=== PATIENT | female | born 2000 | race Caucasian/White ===

== ENCOUNTER 2018-07-17 11:19 | Emergency (ER) | payer OTHER ==
[~2018-07-17] VITALS: Ht 172.7 cm; Wt 85.7 kg
[2018-07-17 11:25] VITALS: BP 104/63
--- NOTE | 2018-07-17 11:30 | NUR ---
to chair for nxt bed
--- NOTE | 2018-07-17 11:46 | NUR ---
PT AMBULATES TO BED 6
--- NOTE | 2018-07-17 11:50 | NUR ---
18Y/F BIB SELF WITH C/O VOMITING DARK RED BLOOD WITH CLOTS WARLIER TODAY. PT ALSO STATES SHE HAS EPIGASTRIC PAIN WITH NAUSEA, - DIARRHEA. LBM: 07/17/18, PT IS AAOX4, VSS AT THIS TIME, BED DOWN, BEDRAIL UP X 1, ER MD AWARE AND NOTIFIED OF PT STATUS. PMH: NONE RX: NONE
[2018-07-17] MEDS ORDERED: NACL 0.9% 500 ML IV ONE (12:29)
[2018-07-17] MEDS ORDERED: PANTOPRAZOLE 40 MG INJ VIAL IVP ONE (12:30)
[2018-07-17] MEDS ORDERED: ONDANSETRON 4 MG/2 ML VIAL IVP ONE (12:30)
[2018-07-17] MEDS ORDERED: KETOROLAC 30 MG/ML VIAL IVP ONE (12:30)
[2018-07-17 12:58] LABS: BASOPHILS % (AUTO) 0.3 % (0.0-2.0); EOSINOPHILS # (AUTO) 0.1 K/uL (0-0.4); EOSINOPHILS % (AUTO) 0.8 % (0.0-4.0); HEMATOCRIT 38.4 % (36-48); HEMOGLOBIN 12.1 g/dL (12.0-16.0); LYMPHOCYTES # (AUTO) 1.1 K/uL (2.5-16.5); LYMPHOCYTES % (AUTO) 15.1 % (20.5-51.1); MEAN CORPUSCULAR HEMOGLOBIN 25 pg (27-31); MEAN CORPUSCULAR HGB CONC 32 g/dL (33-37); MEAN CORPUSCULAR VOLUME 80.2 fL (80-94); MONOCYTES # (AUTO) 0.3 K/uL (0.8-1.0); MONOCYTES % (AUTO) 4.6 % (1.7-9.3); NEUTROPHILS # (AUTO) 5.9 K/uL (1.8-7.7); NEUTROPHILS % (AUTO) 79.2 % (42.2-75.2); PLATELET COUNT (AUTO) 311 K/uL (140-450); RED BLOOD CELL COUNT(AUTO) 4.79 MIL/uL (4.20-5.40); RED CELL DISTRIBUTION WIDTH 14.3 % (11.6-13.7); WHITE BLOOD COUNT (AUTO) 7.5 K/uL (4.5-11.0)
[2018-07-17 13:25] LABS: ANION GAP 11.1 (8-16); CARBON DIOXIDE 28.9 mmol/L (21-32); CREATININE 0.7 mg/dL (0.6-1.3)
[2018-07-17 13:31] LABS: ALBUMIN 3.7 g/dL (3.4-5.0); TOTAL BILIRUBIN 0.4 mg/dL (0.0-1.0)
--- NOTE | 2018-07-17 14:00 | NUR ---
PATIENT STATED SHE FEELS MUCH BETTER.DENIES NAUSEA. DENIES ABD. CRAMPING
--- NOTE | 2018-07-17 14:20 | NUR ---
Patient discharged with v/s stable. Written and verbal after care instructions given and explained. Patient alert, oriented and verbalized understanding of instructions. Ambulatory with steady gait. All questions addressed prior to discharge. ID band removed. Patient advised to follow up with PMD. Rx of PROTONIX,ZOFRAN given. Patient educated on indication of medication including possible reaction and side effects. Opportunity to ask questions provided and answered.
[2018-07-17 14:21] VITALS: BP 102/55
== END 2018-07-17 14:20 | disposition home or self-care (01) ==
LOC: MED 11:19
DX: K22.6 Gastro-esophageal laceration-hemorrhage syndrome (principal); K29.70 Gastritis, unspecified, without bleeding
CPT/HCPCS: 36415; 80053; 83690; 85025; 96365; 96375; 99283; C9113; J1885; J2405; J7030

== ENCOUNTER 2019-01-14 17:47 | Emergency (ER) | payer OTHER ==
[~2019-01-14] VITALS: Ht 172.7 cm; Wt 88.1 kg
[2019-01-14 17:59] VITALS: BP 117/75
[2019-01-14 19:16] LABS: BASOPHILS % (AUTO) 0.3 % (0.0-2.0); EOSINOPHILS # (AUTO) 0.1 K/uL (0-0.4); EOSINOPHILS % (AUTO) 1.7 % (0.0-4.0); HEMATOCRIT 36.9 % (36-48); HEMOGLOBIN 12.1 g/dL (12.0-16.0); LYMPHOCYTES # (AUTO) 1.7 K/uL (2.5-16.5); LYMPHOCYTES % (AUTO) 19.7 % (20.5-51.1); MEAN CORPUSCULAR HEMOGLOBIN 27 pg (27-31); MEAN CORPUSCULAR HGB CONC 33 g/dL (33-37); MEAN CORPUSCULAR VOLUME 82.5 fL (80-94); MONOCYTES # (AUTO) 0.5 K/uL (0.8-1.0); MONOCYTES % (AUTO) 5.3 % (1.7-9.3); NEUTROPHILS # (AUTO) 6.3 K/uL (1.8-7.7); PLATELET COUNT (AUTO) 246 K/uL (140-450); RED BLOOD CELL COUNT(AUTO) 4.48 MIL/uL (4.20-5.40); RED CELL DISTRIBUTION WIDTH 15.4 % (11.6-13.7); WHITE BLOOD COUNT (AUTO) 8.6 K/uL (4.5-11.0)
[2019-01-14 19:45] LABS: APPEARANCE,URINE HAZY (CLEAR); BILIRUBIN,URINE NEGATIVE (NEGATIVE); BLOOD, URINE 3+ (NEGATIVE); COLOR,URINE YELLOW (YELLOW); LEUKOCYTE ESTERASE ,URINE 3+ (NEGATIVE); NITRITE, URINE NEGATIVE (NEGATIVE); UGLUCOSE NEGATIVE (NEGATIVE)
[2019-01-14 19:56] LABS: RBC,URINE 20-50 /HPF (0-5); WBC,URINE 16-25 (MOD) /HPF (0-5)
[2019-01-14 20:56] VITALS: BP 98/51
== END 2019-01-14 20:55 | disposition home or self-care (01) ==
LOC: MED 17:47
DX: O23.41 Unspecified infection of urinary tract in pregnancy, first trimester (principal); Z3A.08 8 weeks gestation of pregnancy
CPT/HCPCS: 36415; 76817; 81001; 81025; 84702; 85025; 86900; 86901; 87086; 99284; Q0092

== ENCOUNTER 2019-01-21 09:45 | Emergency (ER) | payer OTHER ==
[~2019-01-21] VITALS: Ht 175.3 cm; Wt 88.9 kg
[2019-01-21 09:56] VITALS: BP 120/74
--- NOTE | 2019-01-21 09:59 | NUR ---
PT TO WAIT IN ER LOBBY UNTIL AFTER CODE. AA0X4. VSS. NOT ACTIVELY VOMITING AT THIS TIME.
--- NOTE | 2019-01-21 10:18 | NUR ---
PT AMB TO BED 11 WITH STEADY GAIT
--- NOTE | 2019-01-21 10:20 | NUR ---
PT BIB SELF C/O ABDOMINAL PAIN WITH N/V/D X 3 DAYS. PT REPORTS CONSTANT NON-RADIATING BURNING EPIGASTRIC PAIN AT 10/10. ABD IS SOFT, TENDER TO TOUCH IN EPIGASTRIC REGION WITH BOWEL SOUNDS ACTIVE X4 QUADRANTS. PT REPORTS 4 EPISODES OF BROWN WATERY DIARRHEA AND 3 EPISODES OF YELLOW EMESIS IN PAST 24 HOURS. PATIENT STATES SHE HAD AN 3 DAYS AGO, [facility] PMH- DENIES
[2019-01-21] MEDS ORDERED: NACL 0.9% 1,000 ML IV ONE (10:50)
[2019-01-21] MEDS ORDERED: ONDANSETRON 4 MG/2 ML VIAL IVP ONE (10:50)
[2019-01-21 11:10] LABS: BASOPHILS % (AUTO) 0.4 % (0.0-2.0); EOSINOPHILS # (AUTO) 0.1 K/uL (0-0.4); EOSINOPHILS % (AUTO) 1.7 % (0.0-4.0); HEMATOCRIT 35.4 % (36-48); HEMOGLOBIN 11.6 g/dL (12.0-16.0); LYMPHOCYTES # (AUTO) 1.3 K/uL (2.5-16.5); LYMPHOCYTES % (AUTO) 18.5 % (20.5-51.1); MEAN CORPUSCULAR HEMOGLOBIN 27 pg (27-31); MEAN CORPUSCULAR HGB CONC 33 g/dL (33-37); MEAN CORPUSCULAR VOLUME 83.1 fL (80-94); MONOCYTES # (AUTO) 0.4 K/uL (0.8-1.0); MONOCYTES % (AUTO) 5.2 % (1.7-9.3); NEUTROPHILS # (AUTO) 5.3 K/uL (1.8-7.7); NEUTROPHILS % (AUTO) 74.2 % (42.2-75.2); PLATELET COUNT (AUTO) 252 K/uL (140-450); RED BLOOD CELL COUNT(AUTO) 4.27 MIL/uL (4.20-5.40); RED CELL DISTRIBUTION WIDTH 15.2 % (11.6-13.7); WHITE BLOOD COUNT (AUTO) 7.1 K/uL (4.5-11.0)
[2019-01-21 11:15] LABS: ANION GAP 9.4 (8-16); CARBON DIOXIDE 28.4 mmol/L (21-32); CREATININE 0.7 mg/dL (0.6-1.3); POTASSIUM 3.8 mmol/L (3.5-5.1)
[2019-01-21 11:15] LABS: APPEARANCE,URINE CLOUDY (CLEAR); BILIRUBIN,URINE NEGATIVE (NEGATIVE); BLOOD, URINE 3+ (NEGATIVE); COLOR,URINE RED (YELLOW); LEUKOCYTE ESTERASE ,URINE 1+ (NEGATIVE); NITRITE, URINE NEGATIVE (NEGATIVE); UGLUCOSE NEGATIVE (NEGATIVE)
[2019-01-21] MEDS ORDERED: ALUMINUM HYD/MAG/SIMETHICONE 30 ML UDC PO ONE (11:15)
[2019-01-21] MEDS ORDERED: KETOROLAC 15 MG/ML VIAL IVP ONE (11:15)
[2019-01-21 11:19] LABS: RBC,URINE TOO NUMEROUS TO COUN /HPF (0-5)
[2019-01-21 11:35] LABS: ALBUMIN 3.7 g/dL (3.4-5.0); TOTAL BILIRUBIN 0.3 mg/dL (0.0-1.0)
--- NOTE | 2019-01-21 11:51 | NUR ---
US AT BEDSIDE AT THIS TIME
--- NOTE | 2019-01-21 13:41 | NUR ---
PT RESTING IN BED WITH EYES OPEN. PT DENIES NAUSEA AT THIS TIME AND REPORTS THAT SHE HAS NO EPIGASTRIC PAIN AT THIS TIME, BUT DOES REPORT 8/10 PRESSURE HEADACHE IN FRONTAL REGION. VSS.
--- NOTE | 2019-01-21 15:10 | NUR ---
PT IN BED, CALM, DENIES EPIGASTRIC PAIN. STATES HEADACHE IS A 5/10. VSS.
[2019-01-21 15:55] VITALS: BP 102/64
== END 2019-01-21 15:55 | disposition home or self-care (01) ==
LOC: MED 09:45
DX: N39.0 Urinary tract infection, site not specified (principal); R10.9 Unspecified abdominal pain; Z79.899 Other long term (current) drug therapy
CPT/HCPCS: 36415; 76705; 76856; 80053; 81001; 81025; 82150; 83690; 84702; 84703; 85025; 87086; 96361; 96374; 96375; 99284; J1885; J2405; J7030; Q0092

== ENCOUNTER 2019-08-21 19:07 | Emergency (ER) | payer OTHER ==
[~2019-08-21] VITALS: Ht 172.7 cm; Wt 81.6 kg
[2019-08-21 19:16] VITALS: BP 127/69
--- NOTE | 2019-08-21 19:18 | NUR ---
PT AMBULATED WITH STEADY GAIT TO BED 9
--- NOTE | 2019-08-21 19:20 | NUR ---
19 Y/O FEMALE C/O SOB/SORE THROAT/ACHING CHEST PAIN WHEN TAKES BREATHS. PT DENIES ANY TRAUMA . DENIES N/V/D; SKIN IS PINK/WARM/DRY; AAOX4 WITH EVEN AND STEADY GAIT; PT DENIES ANY FEVER, SOB, OR COUGH AT THIS TIME; PATIENT STATES PAIN OF 5/10 AT THIS TIME; VSS; PATIENT POSITIONED FOR COMFORT; HOB ELEVATED; BEDRAILS UP X1 AND WHEELS LOCKED; BED DOWN. MEDICAL HX: PT DENIES NKA
--- NOTE | 2019-08-21 19:50 | NUR ---
DR. ANGELES BEDSIDE EVALUATING PT
--- NOTE | 2019-08-21 19:51 | NUR ---
AT BEDSIDE EXAMINING PT
[2019-08-21 20:36] VITALS: BP 107/79
--- NOTE | 2019-08-21 20:36 | NUR ---
Patient discharged with v/s stable. Written and verbal after care instructions given and explained. Patient verbalized understanding. Ambulatory with steady gait. All questions addressed prior to discharge. Advised to follow up with PMD.
== END 2019-08-21 20:36 | disposition home or self-care (01) ==
LOC: MED 19:07
DX: J02.8 Acute pharyngitis due to other specified organisms (principal); B97.89 Other viral agents as the cause of diseases classified elsewhere
CPT/HCPCS: 71045; 99283; Q0092

== ENCOUNTER 2020-05-22 19:19 | Emergency (ER) | payer MEDICAID, OTHER ==
[~2020-05-22] VITALS: Ht 172.7 cm; Wt 86.2 kg
[2020-05-22 19:30] VITALS: BP 138/78
--- NOTE | 2020-05-22 19:31 | NUR ---
TO TENT AMBULATORY
[2020-05-22] MEDS ORDERED: ACETAMINOPHEN EXTRA STRENGTH 500 MG TAB PO ONE (20:25)
== END 2020-05-22 22:00 | disposition home or self-care (01) ==
LOC: MED 19:19
DX: R07.89 Other chest pain (principal); M54.6 Pain in thoracic spine
CPT/HCPCS: 71045; 93005; 99283

== ENCOUNTER 2020-12-12 23:13 | Emergency (ER) | payer MEDICAID ==
[~2020-12-12] VITALS: Ht 172.7 cm; Wt 91.2 kg
[2020-12-12 23:23] VITALS: BP 119/69
--- NOTE | 2020-12-12 23:29 | NUR ---
PATIENT AMBUALTED TO LOOBY WITH STEADY GAIT. PATIENT STATES UNABLE TO GIVE URINE SAMPLE AT THIS TIME AND UA CUP GIVEN.
[2020-12-13 00:16] LABS: RED BLOOD CELL COUNT(AUTO) 4.51 MIL/uL (4.20-5.40); WHITE BLOOD COUNT (AUTO) 8.5 K/uL (4.8-10.8)
[2020-12-13 00:17] LABS: HEMATOCRIT 36.4 % (36-48); HEMOGLOBIN 11.6 g/dL (12.0-16.0); LYMPHOCYTES % (AUTO) 19.2 % (20.5-51.1); MEAN CORPUSCULAR HEMOGLOBIN 26 pg (27-31); MEAN CORPUSCULAR HGB CONC 32 g/dL (33-37); MEAN CORPUSCULAR VOLUME 80.8 fL (80-94); MONOCYTES % (AUTO) 5.6 % (1.7-9.3); NEUTROPHILS % (AUTO) 70.5 % (42.2-75.2); PLATELET COUNT (AUTO) 289 K/uL (140-450); RED CELL DISTRIBUTION WIDTH 19.2 % (11.6-13.7)
[2020-12-13 00:18] LABS: BASOPHILS # (AUTO) 0.2 K/uL (0.00-0.22); BASOPHILS % (AUTO) 2.2 % (0.0-2.0); EOSINOPHILS # (AUTO) 0.2 K/uL (0-0.4); EOSINOPHILS % (AUTO) 2.5 % (0.0-4.0); LYMPHOCYTES # (AUTO) 1.6 K/uL (2.5-16.5); MONOCYTES # (AUTO) 0.5 K/uL (0.8-1.0)
--- NOTE | 2020-12-13 00:21 | NUR ---
pt taken to ultrasound.
[2020-12-13 00:22] LABS: APPEARANCE,URINE HAZY (CLEAR); BILIRUBIN,URINE NEGATIVE (NEGATIVE); BLOOD, URINE TRACE-L (NEGATIVE); COLOR,URINE YELLOW (YELLOW); LEUKOCYTE ESTERASE ,URINE 1+ (NEGATIVE); NITRITE, URINE POSITIVE (NEGATIVE); PH,URINE 6.5 (5.0-9.0); UGLUCOSE NEGATIVE (NEGATIVE)
--- NOTE | 2020-12-13 00:33 | NUR ---
pt taken to bed #5
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
[2020-12-13 00:43] LABS: RBC,URINE 0-5 /HPF (0-5)
--- NOTE | 2020-12-13 02:11 | NUR ---
Dr. Carmona examining patient.
--- NOTE | 2020-12-13 02:16 | NUR ---
Female Imaging Center Manager accompanied female patient for Pelvic Exam. Wet Mount and Culture collected and handed to microbiology lab assistant.
--- NOTE | 2020-12-13 02:54 | NUR ---
UA COLLECTED AND GIVEN TO ADVERTISING AGENT.
[2020-12-13] MEDS ORDERED: cefTRIAXone 500 MG in LIDOCAINE MPF 1% 1 ML IM ONE (03:30)
[2020-12-13] MEDS ORDERED: DOXY-565 PO (03:31)
[2020-12-13] MEDS ORDERED: METR500T1 PO (03:32)
[2020-12-13] MEDS ORDERED: NITR100C7 PO (03:33)
[2020-12-13] MEDS ORDERED: cefTRIAXone 500 MG VIAL ONE (03:57)
[2020-12-13] MEDS ORDERED: LIDOCAINE MPF 1% 5 ML ONE (03:57)
[2020-12-13 04:04] VITALS: BP 119/69
--- NOTE | 2020-12-13 04:04 | NUR ---
Patient discharged with v/s stable. Written and verbal after care instructions given and explained. Patient alert, oriented and verbalized understanding of instructions. Ambulatory with steady gait. All questions addressed prior to discharge. ID band removed. Patient advised to follow up with PMD. Rx of DOXYCYCLINE, FLAGYL, MACROBID given. Patient educated on indication of medication including possible reaction and side effects. Opportunity to ask questions provided and answered.
== END 2020-12-13 04:04 | disposition home or self-care (01) ==
LOC: MED 23:13
DX: O23.591 Infection of other part of genital tract in pregnancy, first trimester (principal); B96.89 Other specified bacterial agents as the cause of diseases classified elsewhere; O46.8X1 Other antepartum hemorrhage, first trimester
CPT/HCPCS: 36415; 76801; 81001; 81025; 84702; 85025; 86900; 86901; 87086; 87210; 87491; 96372; 99284; J0696; J2001

== ENCOUNTER 2022-01-15 23:15 | Emergency (ER) | payer MEDICAID ==
[~2022-01-15] VITALS: Ht 175.3 cm; Wt 94.8 kg
[~2022-01-15 23:15] MED LIST: DOXY-565 PO; METR500T1 PO; NITR100C7 PO
[2022-01-15 23:39] VITALS: BP 120/70
--- NOTE | 2022-01-15 23:44 | NUR ---
PT AMBULATED TO BED 5 WITH RN
--- NOTE | 2022-01-15 23:48 | NUR ---
21 YO F BIBS W C/O EPIGASTRIC PAIN THAT WORSENS AFTER EATING X THIS MORNING, PT STATES SHE FEEL A BURNING SENSATION. DENIES N/V/D, CONSTIPATION. PMH: DENIES NKDA
--- NOTE | 2022-01-16 01:00 | NUR ---
Patient appears to be resting comfortably in bed. Vital Signs within normal limits. Respirations even and unlabored.
--- NOTE | 2022-01-16 01:26 | NUR ---
PATIENT LEFT WITHOUT BEING SEEN BY DR. CASTLE. NO FURTHER CARE PROVIDED FOR PATIENT.
== END 2022-01-16 01:26 | disposition left against medical advice (07) ==
LOC: MED 23:15
DX: R10.13 Epigastric pain (principal); Z53.21 Procedure and treatment not carried out due to patient leaving prior to being seen by health care provider

== ENCOUNTER 2022-11-14 18:34 | Emergency (ER) | payer MEDICAID ==
[~2022-11-14] VITALS: Ht 172.7 cm; Wt 93.4 kg
[~2022-11-14 18:34] MED LIST changes: -DOXY-565 PO; +DOXY-745 PO
[2022-11-14 18:41] VITALS: BP 111/59
[2022-11-14] MEDS ORDERED: diphenhydrAMINE 50 MG/ML VIAL IVP ONE (19:10)
[2022-11-14] MEDS ORDERED: NACL 0.9% 1,000 ML IV ONE (19:10)
[2022-11-14] MEDS ORDERED: PROCHLORPERAZINE 10 MG/2 ML VIAL IVP ONE (19:10)
[2022-11-14] MEDS ORDERED: KETOROLAC 15 MG/ML VIAL IVP ONE (19:10)
[2022-11-14 19:20] VITALS: BP 145/89
[2022-11-14] MEDS ORDERED: ONDANSETRON 4 MG/2 ML VIAL IVP ONE (20:30)
[2022-11-14] MEDS ORDERED: FAMO-90 PO (20:48)
[2022-11-14] MEDS ORDERED: ONDA-188 SL (20:48)
[2022-11-14] MEDS ORDERED: IBUP-2213 PO (20:48)
[2022-11-14 20:59] VITALS: BP 120/93
--- NOTE | 2022-11-14 21:03 | NUR ---
22YR OLD FEMALE BIB SELF C/O ABD PAIN N/V X2DAYS. PT STATES ABD PAIN 10/10 UPPER GASTRIC. PT IS A&OX4. DENIES SOB OR CP. 20G IV PLACED IN L AC. NKDA NO MED HX
== END 2022-11-14 21:19 | disposition home or self-care (01) ==
LOC: MED 18:34
DX: R51.9 Headache, unspecified (principal); R11.2 Nausea with vomiting, unspecified; Z79.899 Other long term (current) drug therapy
CPT/HCPCS: 81025; 96361; 96374; 96375; 99284; J0780; J1200; J1885; J2405; J7030

== ENCOUNTER 2022-12-26 17:43 | Emergency (ER) | payer MEDICAID ==
[~2022-12-26] VITALS: Ht 172.7 cm; Wt 90.7 kg
[~2022-12-26 17:43] MED LIST changes: +FAMO-90 PO; +IBUP-2213 PO; +ONDA-188 SL
[2022-12-26 18:06] VITALS: BP 125/71; PULSE 101; RESP 20; TEMP 98.6; O2SAT 100
--- NOTE | 2022-12-26 18:15 | NUR ---
TO ER BED 6
[2022-12-26 18:25] VITALS: O2SAT 99
--- NOTE | 2022-12-26 18:28 | NUR ---
Introduced self to patient, patient is awake and alert and able to ambulate. Patient shared she has abd pain since last night, has a sick child at home and the pain is increasing 10/10. PT test and UA dip collected, analyzed and sent to lab. Patient is resting comfortably in bed.
[2022-12-26] MEDS ORDERED: NACL 0.9% 1,000 ML IV ONE (18:40)
[2022-12-26] MEDS ORDERED: KETOROLAC 30 MG/ML VIAL IVP ONE (18:40)
--- NOTE | 2022-12-26 18:58 | NUR ---
RN is in the room, gave pain medication via IV, started bolus IV fluids, and patient is resting in bed.
[2022-12-26 19:00] LABS: BASOPHILS % (AUTO) 0.2 % (0.0-2.0); HEMATOCRIT 37.9 % (36-48); HEMOGLOBIN 12.6 g/dL (12.0-16.0); LYMPHOCYTES # (AUTO) 0.9 K/uL (2.5-16.5); LYMPHOCYTES % (AUTO) 5.9 % (20.5-51.1); MEAN CORPUSCULAR HEMOGLOBIN 28 pg (27-31); MEAN CORPUSCULAR HGB CONC 33 g/dL (33-37); MEAN CORPUSCULAR VOLUME 84.4 fL (80-94); MONOCYTES # (AUTO) 0.8 K/uL (0.8-1.0); MONOCYTES % (AUTO) 5.5 % (1.7-9.3); NEUTROPHILS % (AUTO) 88.4 % (42.2-75.2); PLATELET COUNT (AUTO) 229 K/uL (140-450); RED BLOOD CELL COUNT(AUTO) 4.49 MIL/uL (4.20-5.40); RED CELL DISTRIBUTION WIDTH 13.8 % (11.6-13.7); WHITE BLOOD COUNT (AUTO) 14.7 K/uL (4.8-10.8)
[2022-12-26 19:14] LABS: APPEARANCE,URINE SL CLOUDY (CLEAR); BILIRUBIN,URINE NEGATIVE (NEGATIVE); BLOOD, URINE TRACE-I (NEGATIVE); COLOR,URINE YELLOW (YELLOW); LEUKOCYTE ESTERASE ,URINE NEGATIVE (NEGATIVE); NITRITE, URINE POSITIVE (NEGATIVE); PH,URINE 6.5 (5.0-9.0); UGLUCOSE NEGATIVE (NEGATIVE)
--- NOTE | 2022-12-26 19:19 | NUR ---
Rounding on patient. Gave report to incoming nurse. Patient is awake, alert and able to ambulate. Patient pain assessment due 1954.
--- NOTE | 2022-12-26 19:21 | NUR ---
RECEIVED REPORT FROM DAY SHIFT NURSE JM MARIN. PT LYING IN BED AWAKE AND ORIENTED X4. PT STATES PAIN 10/10 TO ABDOMEN AND GENERALIZED PAIN. CALL LIGHT WITHIN REACH.
[2022-12-26 19:29] LABS: ALBUMIN 3.8 g/dL (3.4-5.0); ANION GAP 16.3 (8-16); CARBON DIOXIDE 22.7 mmol/L (21-32); CREATININE 0.8 mg/dL (0.6-1.3); TOTAL BILIRUBIN 0.7 mg/dL (0.0-1.0)
[2022-12-26] MEDS ORDERED: cefTRIAXone 1,000 MG VIAL ONE (19:29)
[2022-12-26 19:33] VITALS: O2SAT 99
--- NOTE | 2022-12-26 19:55 | NUR ---
Per Sky Babin LVN, NaCl 0.9 1L bolus started at 1854 and stopped at 1954. ED director aware.
[2022-12-26] MEDS ORDERED: NITR100C7 PO (21:19)
[2022-12-26 21:25] VITALS: BP 100/47; PULSE 81; RESP 25; O2SAT 97
== END 2022-12-26 21:27 | disposition home or self-care (01) ==
LOC: MED 17:43
DX: N39.0 Urinary tract infection, site not specified (principal); Z79.899 Other long term (current) drug therapy
CPT/HCPCS: 36415; 80053; 81001; 81025; 83605; 85025; 87040; 87086; 96361; 96365; 96375; 99285; J0696; J1885; J7030

== ENCOUNTER 2023-05-18 19:57 | Emergency (ER) | payer MEDICAID ==
[~2023-05-18] VITALS: Ht 172.7 cm; Wt 88.5 kg
[2023-05-18 20:40] VITALS: BP 135/65; PULSE 74; RESP 16; TEMP 98.1
[2023-05-18] MEDS ORDERED: NACL 0.9% 1,000 ML IV ONE (22:30)
[2023-05-18] MEDS ORDERED: ACETAMINOPHEN 100 ML IV ONE (22:30)
[2023-05-18] MEDS ORDERED: METOCLOPRAMIDE 10 MG/2 ML INJ VIAL IVP ONE (22:30)
[2023-05-18 23:04] LABS: APPEARANCE,URINE CLEAR (CLEAR); BASOPHILS # (AUTO) 0.1 K/uL (0.00-0.22); BASOPHILS % (AUTO) 0.6 % (0.0-2.0); BILIRUBIN,URINE NEGATIVE (NEGATIVE); BLOOD, URINE TRACE-I (NEGATIVE); COLOR,URINE YELLOW (YELLOW); EOSINOPHILS # (AUTO) 0.2 K/uL (0-0.4); EOSINOPHILS % (AUTO) 2.1 % (0.0-4.0); HEMATOCRIT 36.7 % (36-48); HEMOGLOBIN 12.4 g/dL (12.0-16.0); LEUKOCYTE ESTERASE ,URINE 1+ (NEGATIVE); LYMPHOCYTES # (AUTO) 2.1 K/uL (2.5-16.5); LYMPHOCYTES % (AUTO) 24.5 % (20.5-51.1); MEAN CORPUSCULAR HEMOGLOBIN 29 pg (27-31); MEAN CORPUSCULAR HGB CONC 34 g/dL (33-37); MEAN CORPUSCULAR VOLUME 84.7 fL (80-94); MONOCYTES # (AUTO) 0.6 K/uL (0.8-1.0); MONOCYTES % (AUTO) 7.3 % (1.7-9.3); NEUTROPHILS # (AUTO) 5.5 K/uL (1.8-7.7); NEUTROPHILS % (AUTO) 65.5 % (42.2-75.2); NITRITE, URINE POSITIVE (NEGATIVE); PLATELET COUNT (AUTO) 272 K/uL (140-450); PROTEIN,URINE TRACE (NEGATIVE); RED BLOOD CELL COUNT(AUTO) 4.34 MIL/uL (4.20-5.40); RED CELL DISTRIBUTION WIDTH 14.7 % (11.6-13.7); UGLUCOSE NEGATIVE (NEGATIVE); WHITE BLOOD COUNT (AUTO) 8.4 K/uL (4.8-10.8)
[2023-05-18 23:13] LABS: BACTERIA,URINE >30 (MANY) /HPF (None Seen); MUCUS,URINE 2+ /LPF (None Seen); RBC,URINE 0-5 /HPF (0-5); SQUAMOUS EPITHELIAL CELL,UR 0-3 (FEW) /LPF (0-3 (FEW)); WBC,URINE TOO MANY TO COUNT /HPF (0-5)
[2023-05-18 23:30] VITALS: BP 110/59; PULSE 65; RESP 18; O2SAT 99
[2023-05-18 23:39] LABS: ANION GAP 11.1 (8-16); CALCIUM 8.5 mg/dL (8.5-10.1); CARBON DIOXIDE 29.3 mmol/L (21-32); CREATININE 0.7 mg/dL (0.6-1.3); POTASSIUM 3.4 mmol/L (3.5-5.1)
[2023-05-18 23:45] LABS: ALBUMIN 3.1 g/dL (3.4-5.0); BILIRUBIN,DIRECT 0.1 mg/dL (0.0-0.3); TOTAL BILIRUBIN 0.3 mg/dL (0.0-1.0); TOTAL PROTEIN, SERUM 7.1 g/dL (6.4-8.2)
[2023-05-19] MEDS ORDERED: ACET-2619 PO (01:26)
[2023-05-19] MEDS ORDERED: CEPH-588 PO (01:26)
[2023-05-19] MEDS ORDERED: METO-485 PO (01:26)
[2023-05-19] MEDS ORDERED: cefTRIAXone 1,000 MG VIAL ONE (01:30)
== END 2023-05-19 02:26 | disposition home or self-care (01) ==
LOC: MED 19:57
DX: O20.0 Threatened abortion (principal); O23.41 Unspecified infection of urinary tract in pregnancy, first trimester; Z3A.08 8 weeks gestation of pregnancy; Z79.899 Other long term (current) drug therapy
CPT/HCPCS: 36415; 76815; 80048; 80076; 81001; 81025; 83690; 85025; 86886; 86900; 86901; 87086; 96361; 96365; 96375; 99285; J0696; J2765; J7030